=== PATIENT | male | born 1960 | race Caucasian/White ===

== ENCOUNTER 2017-03-30 15:03 | Outpatient (CLI) | payer OTHER ==
--- NOTE | 2017-03-30 15:40 | DIAGNOSTIC IMAGING REPORT ---
PROCEDURE: XR KNEE 3 VIEWS - LEFT INDICATION: INTERNAL DERANGEMENT TECHNIQUE: Three views. COMPARISON: None. FINDINGS: Severe osteoarthritis medial compartment of the left knee and patellofemoral area. IMPRESSION: 1. Severe patellofemoral and medial compartment osteoarthritis left knee.
== END 2017-03-30 23:00 | disposition home or self-care (01) ==
LOC: XR SRH 15:03
DX: M17.12 Unilateral primary osteoarthritis, left knee (principal)